=== PATIENT | male | born 1940 | race Caucasian/White ===

== ENCOUNTER 2019-10-10 10:08 | Emergency (ER) | payer MEDICARE, SELFPAY ==
--- NOTE | ~2019-10-10 | XR_ITS ---
EXAMINATION: XR chest 2V EXAM DATE: 10/10/2019 11:23 INDICATION: Cough. Generalized rib pain. TECHNIQUE: Frontal and lateral projections of the chest obtained and reviewed. Comparison is made to prior examination from 07/21/2018. FINDINGS: The lungs are clear. There are no pleural effusions. The cardiomediastinal silhouette is within normal limits. There is no pneumothorax suspected. The bones and soft tissues are unremarkab le. There is no significant interval change. IMPRESSION: No acute cardiopulmonary findings. Reviewed, dictated and finalized at location B. [employer] TEACHER
[2019-10-10 10:35] VITALS: BP 133/63; PULSE 104; RESP 20; TEMP 37.6; O2SAT 98
--- NOTE | 2019-10-10 11:59 | ED.URI ---
HPI - URI/Sore Throat General Chief Complaint: Upper Respiratory Infection Stated Complaint: congestion Time Seen by Provider: 10/10/19 11:59 Source: patient and RN notes reviewed Mode of arrival: ambulatory Limitations: no limitations History of Present Illness HPI Narrative: 78-year-old male who presents to [facility] with complaints of cough, congestion and rib pain from frequent cough since yesterday. Patient states that he has been taking Coricidin HBP for his sinus drainage which is frequent and clear, denies any ear pain or any sore throat. Patient states history of sinus problems and history of sinus infections uses nasal saline and Nasacort nasal spray daily.. He denies any shortness of breath with rest or activity,SAO2 98% on room air MD elicited complaint: cough, rhinorrhea and nasal congestion Pertinent past history: sinusitis Onset (ago): day(s) (2) Consistency: constant Severity: similar to previous episodes Description of mucous: clear Able to tolerate fluids by mouth: Yes Exacerbating factors: deep breaths and other (sinus drainage) Relieving factors: nothing Associated symptoms: rhinorrhea, nasal congestion, cough and other (bilateral anterior rib pain) Treatments prior to arrival: other (Coricidin HBP, nasal saline, Nasacort spray) Related Data Home Medications Medication Instructions Recorded Confirmed lansoprazole [Prevacid 24Hr] 15 mg PO DAILY 10/10/19 10/10/19 Allergies Allergy/AdvReac Type Severity Reaction Status Date / Time Penicillins Allergy Unknown Rash Verified 10/10/19 11:40 Review of Systems Review of Systems: All systems reviewed & are unremarkable except as noted in HPI and below Constitutional: Constitutional: Reports as per HPI, Reports no additional constitutional complaints and Reports fever(s) (low grade temperature) Eyes: Eyes: Reports as per HPI and Reports no additional eye complaints ENT: Reports system reviewed and no additional complaints, except as documented, Reports as per HPI and Reports nasal congestion Comments: clear nasal drainage Cardiovascular: Cardiovascular: Reports as per HPI and Reports no additional cardiovascular complaints Comments: rib pain due to frequent cough Respiratory: Respiratory: Reports as per HPI, Reports no additional respiratory complaints and Reports cough Gastrointestinal: Gastrointestinal: Reports as per HPI and Reports no additional gastrointestinal complaints Genitourinary: Genitourinary: Reports no additional male genitourinary complaints and Reports as per HPI Musculoskeletal: Musculoskeletal: Reports no additional musculoskeletal complaints and Reports as per HPI Integumentary/Breasts: Skin/Breast: Reports system reviewed and no additional complaints, except as docu and Reports as per HPI Neurologic: Reports system reviewed and no additional complaints, except as documented and Reports as per HPI Psychiatric: Psychiatric: Reports no additional psychiatric complaints and Reports as per HPI Hematologic/Lymphatic: Hematologic/Lymphatic: Reports no additional hematologic/lymphatic complaints and Reports as per HPI Allergic/Immunologic: Allergic/Immunologic: Reports no additional allergic/immunologic complaints and Reports as per HPI FORMERLY [facility] Past Medical History Medical History (Updated 10/12/19 @ 16:58 by Yuliana Mckeon NP) Arthritis Bronchitis GERD (gastroesophageal reflux disease) Hyperlipidemia Sinus infection Surgical History Surgical History (Updated 10/12/19 @ 16:59 by Yuliana Mckeon NP) History of bowel resection Family History Family History (Updated 10/12/19 @ 17:01 by Yuliana Mckeon NP) Other Diabetes mellitus Hypertension Social History Social History (Updated 10/12/19 @ 17:02 by Yuliana Mckeon NP) Smoking status: Former smoker Smoking end date: 08/15/1965 Alcohol intake: current Living arrangements: with family Occupation/Education: retired Gender identity (if verbalized by t
== END 2019-10-10 12:15 | disposition home or self-care (01) ==
PROVIDERS: Emergency Provider Registered Nurse
DX: J00 Acute nasopharyngitis [common cold] (principal); J01.90 Acute sinusitis, unspecified; Z87.891 Personal history of nicotine dependence; M19.90 Unspecified osteoarthritis, unspecified site; K21.9 Gastro-esophageal reflux disease without esophagitis; E78.5 Hyperlipidemia, unspecified
CPT/HCPCS: 71046; 99213; G0463

== ENCOUNTER 2019-11-26 10:27 | Emergency (ER) | payer MEDICARE, SELFPAY ==
--- NOTE | ~2019-11-26 | XR_ITS ---
EXAMINATION: XR chest 2V DATE: 11/26/2019 10:56 INDICATION: Anterior right chest pain. TECHNIQUE: Frontal and lateral views of the chest were obtained. COMPARISON: Chest 2 views 10/10/2019, CT abdomen and pelvis 12/06/2016 FINDINGS: There is mild atelectasis at left lung base. No pleural effusion or pneumothorax. The heart size is normal. IMPRESSION: 1. Mild atelectasis at left lung base. Reviewed, dictated and finalized at location A.
[2019-11-26 10:40] VITALS: BP 149/75; PULSE 100; RESP 20; TEMP 36.7; O2SAT 100
--- NOTE | 2019-11-26 11:36 | ED.GENADULT ---
HPI - General Adult General Chief complaint: Chest Pain Stated complaint: pain in chest from coughing Time Seen by Provider: 11/26/19 11:36 Source: patient and RN notes reviewed Mode of arrival: ambulatory Limitations: no limitations History of Present Illness HPI narrative: 78-year-old male who presents to [facility] care with complaints of discomfort to the left lower sternum following hard cough on Tuesday. Patient states that he continues to have intermittent sharp pain with deep breathing, cough, and if sneezing. Patient denies any shortness of breath, denies any radiation of pain, no fevers,chills, or sweats, or any palpitations. Patient denies any history of blood clots, no recent travel, was treated in September for cough, congestion and sinus infection with antibiotics and steroids. Patient has even and non labored respirations with no tachypnea or accessory muscle use, SAO2 100% on room air. Onset (ago): day(s) (3) Location: chest Radiation: non-radiation Severity: mild Pain Consistency: intermittent Exacerbating factors: other (Cough, taking deep breaths,) Associated symptoms: denies other symptoms Treatments prior to arrival: other (tylenol) Related Data Home Medications Medication Instructions Recorded Confirmed esomeprazole magnesium [Nexium] 20 mg PO DAILY 11/26/19 11/26/19 Allergies Allergy/AdvReac Type Severity Reaction Status Date / Time Penicillins Allergy Unknown Rash Verified 11/26/19 10:32 Review of Systems Review of Systems: Narrative: CONSTITUTIONAL: Denies fever, chills, or sweats. EYES: Denies visual changes, redness, or discharge. ENT: Denies rhinorrhea, congestion, sore throat, or otalgia. CARDIOVASCULAR: Left lower sternal chest pain, no palpitations, or edema. RESPIRATORY: Intermittent cough denies dyspnea. GASTROINTESTINAL: Denies abdominal pain, nausea, vomiting, or diarrhea. GENITOURINARY: Denies dysuria or hematuria. SKIN: Denies rash or itching. MUSCULOSKELETAL: Denies back pain, joint pain, or myalgia. NEUROLOGIC: Denies headache, numbness, or weakness. PSYCHIATRIC: Denies anxiety or depression. All systems reviewed & are unremarkable except as noted in HPI and below PMFSH Past Medical History Medical History Arthritis Bronchitis GERD (gastroesophageal reflux disease) Hyperlipidemia Sinus infection Surgical History Surgical History History of bowel resection Family History Family History Mother No problems noted. Father No problems noted. Other Diabetes mellitus Hypertension Social History Social History (Updated 11/05/19 @ 11:36 [address]ana [facility]) Smoking status: Former smoker Smoking end date: 08/15/1965 Alcohol intake: never Substance use: never Gender identity (if verbalized by the patient): Male Comments At time of signature, agree with nursing past medical, surgical, social history. There is no relevant family history pertinent to the presenting complaint Exam Narrative: Exam Narrative: GENERAL: Well-appearing, well-nourished, and in no acute distress. HEAD: Normocephalic, atraumatic. EYES: PERRLA and EOMI. ENT: Nares clear, no rhinorrhea or epistaxis. Mucous membranes moist. TM's normal with good light reflex, throat pink with no lesions or exudates, no tonsil enlargement. NECK: Supple.no lymphadenopathy CHEST: Clear to auscultation. No respiratory distress. Occasional dry or loose cough, SaO2 100% on room air.pain to left sternal area with cough, sneeze or deep breaths, denies any dyspnea, SAO2 100% on room air. HEART: Regular rate and rhythm. No murmur heard. Normal peripheral pulses. ABDOMEN: Soft, nontender, nondistended, normal active bowel sounds. EXTREMITIES: Normal range of motion. No edema. SKIN: Warm, dry, no rash. NEURO: No focal defic
== END 2019-11-26 12:05 | disposition home or self-care (01) ==
PROVIDERS: Emergency Provider Registered Nurse
DX: R07.89 Other chest pain (principal); Z87.891 Personal history of nicotine dependence; M19.90 Unspecified osteoarthritis, unspecified site; K21.9 Gastro-esophageal reflux disease without esophagitis; E78.5 Hyperlipidemia, unspecified
CPT/HCPCS: 71046; 99213; G0463

== ENCOUNTER 2020-11-13 17:14 | Emergency (ER) | payer MEDICARE, SELFPAY ==
--- NOTE | ~2020-11-13 | XR_ITS ---
EXAMINATION: XR chest 2V DATE: 11/13/2020 18:15 INDICATION: Dizziness. Shortness of breath. TECHNIQUE: Frontal and lateral views of the chest were obtained on 3 radiographs. COMPARISON: Chest 2 views 11/26/2019 FINDINGS: There is mild atelectasis in the lower lung zones. No pleural effusion or pneumothorax. The heart size is normal. IMPRESSION: 1. Mild atelectasis in the lower lung zones. Reviewed, dictated and finalized at location A.
--- NOTE | ~2020-11-13 | CT_ITS ---
EXAMINATION: CT brain wo con DATE: 11/13/2020 18:10 INDICATION: Dizziness. Headaches. TECHNIQUE: Computed tomography (CT) of the head was performed without intravenous contrast. The mA wa s adjusted according to patient size. Iterative reconstruction technique was employed. The dose-lengt h product was 605.33 mGy-cm. COMPARISON: None FINDINGS: There are scattered areas of low attenuation in the cerebral white matter. There is no intr acranial hemorrhage, acute infarction, or abnormal intracranial mass lesion. The ventricles are star l in size. There are likely changes of ocular lens replacement surgeries. The paranasal sinuses are c lear. There is a trace left mastoid effusion. IMPRESSION: 1. Mild nonspecific cerebral white matter disease, which likely represents chronic small vessel ische terrie disease. Reviewed, dictated and finalized at location A. IMPRESSION: 1. Mild nonspecific cerebral white matter disease, which likely represents working foreman courtney small vessel ischemic disease.
[2020-11-13 17:49] VITALS: BP 182/82; PULSE 97; RESP 97; TEMP 36.8; O2SAT 97
--- NOTE | 2020-11-13 17:49 | ECG_ITS ---
Measurements Intervals [place] Rate: 91 P: 34 AL: 135 QRS: 67 QRSD: 93 T: 37 QT: 364 QTc: 449 Interpretive Statements SINUS RHYTHM BORDERLINE ST ABNORMALITY- ANTEROLATERAL LEADS BORDERLINE ECG Electronically Signed On 11-14-2020 9:43:24 CDT by Amos Rodriguez D.O.
--- NOTE | 2020-11-13 17:50 | ED.ABDPAIN ---
HPI - Abdominal Pain General Chief Complaint: Abdominal Pain Stated Complaint: lightheaded Time Seen by Provider: 11/13/20 17:38 Source: patient Mode of arrival: ambulatory Limitations: no limitations History of Present Illness HPI narrative: This is a 79-year-old male that presents to the emergency department for lightheadedness x4 days. Reports he had an episode of lightheadedness on Tuesday in which he had to lie down to feel better. Reports since he has felt mildly lightheaded and also had a lot of nausea. He has been taking Nexium with little relief. Denies fever, chest pain, shortness of breath, vomiting, diarrhea, hematochezia or melena. Related Data Home Medications Medication Instructions Recorded Confirmed esomeprazole magnesium [Nexium] 20 mg PO DAILY 11/26/19 11/26/19 Allergies Allergy/AdvReac Type Severity Reaction Status Date / Time Penicillins Allergy Unknown Rash Verified 11/13/20 18:18 Review of Systems Review of Systems: Narrative: CONSTITUTIONAL: Denies fever EYES: Denies visual changes CARDIOVASCULAR: Denies chest pain, or edema. RESPIRATORY: Denies dyspnea. GASTROINTESTINAL: Reports nausea. Denies abdominal pain, vomiting, or diarrhea. GENITOURINARY: Denies dysuria NEUROLOGIC: Denies numbness, or weakness. All systems reviewed & are unremarkable except as noted in HPI and below PMFSH Past Medical History Medical History (Updated 11/13/20 @ 20:37 by Deanna Poon PA-C) Arthritis Bronchitis GERD (gastroesophageal reflux disease) Hyperlipidemia Sinus infection Surgical History Surgical History History of bowel resection Family History Family History Mother No problems noted. Father No problems noted. Other Diabetes mellitus Hypertension Social History Social History (Updated 11/05/19 @ 11:36 by Martina Arana CMA) Smoking status: Former smoker Smoking end date: 08/15/1965 Alcohol intake: never Substance use: never Gender identity (if verbalized by the patient): Male Exam Narrative: Exam Narrative: GENERAL: Well-appearing, well-nourished, and in no acute distress. HEAD: Normocephalic, atraumatic. EYES: PERRLA and EOMI. ENT: Nares clear, no rhinorrhea or epistaxis. Mucous membranes moist. Oropharynx without tonsillar hypertrophy exudate or other lesions. Bilateral TMs pearly [place] non-bulging NECK: Supple. No adenopathy or masses. No carotid bruits or JVD CHEST: Clear to auscultation. No respiratory distress. No wheezes rales or rhonchi HEART: Regular rate and rhythm. No murmur heard. Normal peripheral pulses. ABDOMEN: Soft, nontender, nondistended, normal active bowel sounds. EXTREMITIES: Normal range of motion. No edema. SKIN: Warm, dry, no rash. NEURO: No focal deficits. Alert and oriented x3. Cranial nerves II through XII grossly intact. Normal finger-nose. Normal [id number] PSYCH: Normal mood and affect Course Vital Signs Vital signs: Vital Signs Temperature 98.2 F 11/13/20 17:49 Pulse Rate 97 11/13/20 17:49 Respiratory Rate 97 H 11/13/20 17:49 Blood Pressure 182/82 H 11/13/20 17:49 Pulse Oximetry 97 11/13/20 17:49 Temperature 98.2 F 11/13/20 17:49 Pulse Rate 83 11/13/20 18:58 Respiratory Rate 18 11/13/20 18:58 Blood Pressure 156/78 H 11/13/20 18:58 Pulse Oximetry 100 11/13/20 18:58 MDM - Abdominal Pain MDM Narrative Medical decision making narrative: Patient presents the emergency department for intermittent lightheadedness x4 days. He is afebrile and nontoxic-appearing. Blood pressure elevated to 180s on arrival, this down trended on its own. Most recent blood pressure 156/78. CBC without concerning findings. Metabolic panel shows may be mild dehydration, patient given IV fluids and Zofran in the ED with improvement. UA without evidence of infection. EKG is
[2020-11-13 18:30] LABS: Basophils Absolute Auto 0.1 K/mm3 (0.0-0.1); Basophils Percent Auto 1.1 % (0.2-1.2); Eosinophils Absolute Auto 0.2 K/mm3 (0-0.3); Eosinophils Percent Auto 3.2 % (0-4.4); Hematocrit 44.1 % (42.0-52.0); Immature Granulocyte Absolute 0.02 K/mm3 (0.00-0.031); Immature Granulocyte Percent A 0.3 % (0-0.5); Lymphocytes Absolute Auto 1.47 K/mm3 (0.9-3.2); Lymphocytes Percent Auto 20.6 % (18.3-44.2); Mean Corpuscular Hemoglobin 31.3 pg (26-34); Mean Corpuscular Volume 92.1 fl (80-100); Mean Platelet Volume 9.7 fl (7.4-10.4); Monocytes Absolute Auto 0.7 K/mm3 (0.1-0.6); Monocytes Percent Auto 9.9 % (2.6-8.5); Neutrophils Absolute Auto 4.6 K/mm3 (1.3-6.7); Neutrophils Percent Auto 64.9 % (45.5-73.1); Platelet Count Result 225 k/mm3 (150-375); Red Blood Count 4.79 M/mm3 (4.6-6.20); White Blood Count 7.2 K/mm3 (4.5-10.0)
[2020-11-13 18:39] LABS: INR 0.9; Prothrombin Time 12.7 Seconds (11.1-14.7)
[2020-11-13 18:40] LABS: Partial Thromboplastin Time 27.5 SECONDS (22.3-36.8)
[2020-11-13 18:43] LABS: Alanine Aminotransferase 16 U/L (4-50); Albumin Level 4.4 g/dL (3.5-5.1); Alkaline Phosphatase 103 U/L (38-126); Anion Gap 9 mmol/L (8-16); Aspartate Amino Transferase 22 U/L (17-59); Bilirubin,Total 0.5 mg/dL (0.2-1.3); Blood Urea Nitrogen 14 mg/dL (9-20); Carbon Dioxide 26 mmol/L (22-30); Chloride 104 mmol/L (98-107); Estimated Glomerular Filt Rate 54; Glucose 110 mg/dL (75-110); Lipase 138 U/L (23-300); Sodium 139 mmol/L (137-145)
[2020-11-13] MEDS: SODIUM CHLORIDE 0.9% IV 1,000 ML 999 ML IV CONT (18:53)
[2020-11-13] MEDS: ONDANSETRON INJ 4 MG/2 ML VIAL IV PUSH (18:53)
[2020-11-13 18:58] VITALS: BP 156/78; PULSE 83; RESP 18; O2SAT 100
[2020-11-13 19:00] VITALS: BP 159/82; PULSE 88; RESP 17; O2SAT 99
[2020-11-13 20:00] VITALS: BP 162/69; PULSE 83; RESP 17; O2SAT 100
[2020-11-13 20:01] LABS: Troponin I < 0.012 ng/mL (0.000-0.034)
[2020-11-13 20:26] LABS: Add Urine Microscopic? NO; Appearance Urine Clear (Clear); Bilirubin Urine Negative (Negative); Blood Urine Negative (Negative); Color Urine Straw (Yellow); Glucose Urine UA Negative (Negative); Ketones Urine Negative (Negative); Leukocyte Esterase Ur Negative LEU/UL (Negative); Nitrate Urine Negative (Negative); Protein Urine Negative (Negative); Specific Grav Ur 1.009 (1.001-1.035); Urobilinogen Urine Negative mg/dL (<2.0)
[2020-11-13 21:00] VITALS: BP 141/71; PULSE 84; RESP 17; O2SAT 99
[2020-11-13 21:35] VITALS: BP 156/71; PULSE 91; RESP 16; O2SAT 99
== END 2020-11-13 21:35 | disposition home or self-care (01) ==
PROVIDERS: Emergency Medicine; Physician Assistant; Emergency Provider Emergency Medicine
DX: R42 Dizziness and giddiness (principal); M19.90 Unspecified osteoarthritis, unspecified site; K21.9 Gastro-esophageal reflux disease without esophagitis; E78.5 Hyperlipidemia, unspecified; Z87.891 Personal history of nicotine dependence; R94.31 Abnormal electrocardiogram [ECG] [EKG]; R90.82 White matter disease, unspecified; R91.8 Other nonspecific abnormal finding of lung field
CPT/HCPCS: 36415; 70450; 71046; 80053; 81003; 83690; 84484; 85025; 85610; 85730; 93005; 96361; 96374; 99284; J2405; J7030

== ENCOUNTER 2020-12-15 11:13 | Emergency (ER) | payer MEDICARE, SELFPAY ==
--- NOTE | ~2020-12-15 | XR_ITS ---
EXAMINATION: XR chest 2V DATE: 12/15/2020 12:09 INDICATION: Chest pain TECHNIQUE: PA and lateral views of the chest are obtained. COMPARISON: 11/13/2020 FINDINGS: The lungs are free of acute opacities. There is no pleural effusion or pneumothorax. The ca rdiomediastinal silhouette is normal. There is mild thoracic spondylosis. IMPRESSION: 1. No acute cardiopulmonary abnormality. Reviewed, dictated and finalized at location A.
--- NOTE | ~2020-12-15 | CT_ITS ---
EXAMINATION: CTA chest PE protocol EXAM DATE: 12/15/2020 13:14 INDICATION: Left chest pain, elevated d dimer TECHNIQUE: Spiral CTA of the chest (pulmonary arteries) was performed with 100 cc Omnipaque 350 intr avenous contrast injection. Images were acquired during the pulmonary arterial phase. Coronal maxi mum intensity projection 3D-reconstructions were created by the technologist on dedicated workstation . Axial, coronal and sagittal reformatted images were reviewed. The dose-length product (DLP) for t his examination was 406.49 mGy-cm. The exposure was tailored according to patient size (auto mA exp osure control), and iterative reconstruction (ASIR) was used as additional dose reduction technique. There is no prior study for comparison. FINDINGS: There are no pulmonary emboli in the 1st through 3rd order (central and interlobar) pulmon sophie arteries. Some loss of attenuation in the segmental pulmonary arteries due to respiratory motion , but no intraluminal filling defects suspected. No thoracic aortic dissection. The lungs are kim r. There is small pericardial effusion. No pleural effusions. Mild bronchiectasis. Tracheobronchia l tree is patent. There is no mediastinal, hilar or axillary lymphadenopathy. There is no pneumot horax. Heart normal in size. There is mild to moderate coronary arterial calcification, arterial sclerosis. Scattered transverse colonic diverticulosis. The bones are unremarkable. IMPRESSION: 1. No pulmonary emboli or acute findings. 2. Mild bronchiectasis. Reviewed, dictated and finalized at location B.
[2020-12-15 11:18] VITALS: BP 190/90; PULSE 97; RESP 18; TEMP 36.7; O2SAT 99
--- NOTE | 2020-12-15 11:35 | ECG_ITS ---
Measurements Intervals [place] Rate: 99 P: 47 OR: 135 QRS: 73 QRSD: 88 T: 58 QT: 334 QTc: 430 Interpretive Statements SINUS RHYTHM DELAYED PRECORDIAL R/S TRANSITION BORDERLINE ST ABNORMALITY- ANTEROLATERAL LEADS BORDERLINE ECG Electronically Signed On 12-15-2020 14:31:22 CDT by Amos Rodriguez D.O.
[2020-12-15 11:44] LABS: Basophils Absolute Auto 0.1 K/mm3 (0.0-0.1); Basophils Percent Auto 1.3 % (0.2-1.2); Eosinophils Absolute Auto 0.2 K/mm3 (0-0.3); Eosinophils Percent Auto 3.1 % (0-4.4); Hematocrit 45.9 % (42.0-52.0); Hemoglobin 15.3 g/dL (14.0-18.0); Immature Granulocyte Absolute 0.02 K/mm3 (0.00-0.031); Immature Granulocyte Percent A 0.4 % (0-0.5); Lymphocytes Absolute Auto 1.06 K/mm3 (0.9-3.2); Lymphocytes Percent Auto 19.1 % (18.3-44.2); Mean Corpuscular HGB Conc 33.3 g/dl (32-36); Mean Corpuscular Hemoglobin 31.2 pg (26-34); Mean Corpuscular Volume 93.5 fl (80-100); Mean Platelet Volume 9.7 fl (7.4-10.4); Monocytes Absolute Auto 0.6 K/mm3 (0.1-0.6); Neutrophils Absolute Auto 3.6 K/mm3 (1.3-6.7); Neutrophils Percent Auto 65.1 % (45.5-73.1); Platelet Count Result 183 k/mm3 (150-375); Red Blood Count 4.91 M/mm3 (4.6-6.20); Red Cell Distribution Width 11.9 % (11.5-14.5); White Blood Count 5.6 K/mm3 (4.5-10.0)
[2020-12-15 12:00] LABS: Prothrombin Time 13.3 Seconds (11.1-14.7)
[2020-12-15 12:01] LABS: Anion Gap 7 mmol/L (8-16); Blood Urea Nitrogen 12 mg/dL (9-20); Calcium 9.6 mg/dL (8.4-10.2); Carbon Dioxide 29 mmol/L (22-30); Chloride 104 mmol/L (98-107); Estimated CRCL calculation 45 ml/min; Estimated Glomerular Filt Rate 59; Glucose 130 mg/dL (75-110); Partial Thromboplastin Time 22.6 SECONDS (22.3-36.8); Sodium 140 mmol/L (137-145)
[2020-12-15 12:12] LABS: Troponin I < 0.012 ng/mL (0.000-0.034)
[2020-12-15 12:14] LABS: Alanine Aminotransferase 17 U/L (4-50); Albumin Level 4.2 g/dL (3.5-5.1); Alkaline Phosphatase 91 U/L (38-126); Aspartate Amino Transferase 29 U/L (17-59); Bilirubin,Total 0.5 mg/dL (0.2-1.3); D Dimer 1.74 ug/mL (<0.48); Lipase 121 U/L (23-300)
--- NOTE | 2020-12-15 12:19 | ED.CHESTPAIN ---
HPI - Chest Pain General Chief Complaint: Chest Pain Stated Complaint: CHEST PAIN X5D Time Seen by Provider: 12/15/20 11:33 Source: patient, RN notes reviewed and old records reviewed Mode of arrival: ambulatory Limitations: no limitations History of Present Illness HPI narrative: This is a 80 year old male with history of GERD who presents for evaluation of left chest pain. He reports he has been having intermittent left sternal and left lower chest pain for 5 days. He thinks his pain usually occurs in the morning. He states it is intermittent and nonradiating. His pain may last from minutes to hours. He thinks his pain is superficial like a muscle. He denies associated nausea, vomiting, cough, sob, diaphoresis. He took ibuprofen before coming in for his pain and he states his pain has resolved. Related Data Home Medications Medication Instructions Recorded Confirmed esomeprazole magnesium [Nexium] 20 mg PO DAILY 11/26/19 12/09/20 Allergies Allergy/AdvReac Type Severity Reaction Status Date / Time Penicillins Allergy Unknown Rash Verified 12/15/20 11:24 Review of Systems Review of Systems: All systems reviewed & are unremarkable except as noted in HPI and below PMFSH Past Medical History Medical History Arthritis Bronchitis GERD (gastroesophageal reflux disease) Hyperlipidemia Sinus infection Surgical History Surgical History History of bowel resection Family History Family History Mother No problems noted. Father No problems noted. Other Diabetes mellitus Hypertension Social History Social History Smoking status: Never smoker Smoking end date: 08/15/1965 Alcohol intake: never Substance use: never Gender identity (if verbalized by the patient): Male Exam Const: General: no acute distress and alert Orientation/consciousness: patient oriented x3 Eyes: EOM: EOMs intact bilaterally Resp: Effort & Inspection: normal respiratory effort and no retractions Auscultation: clear to auscultation bilaterally Cardio: Rate: regular rate Rhythm: regular rhythm Heart sounds: no murmurs GI: GI Palp: Yes Soft to palpation, No Tenderness to palpation present (GI) and No Guarding due to palpation present (GI) Auscultation: normal bowel sounds Neuro: General: patient oriented x3, moves all extremities and CN's II-XI intact bilaterally Extrem: General: normal to inspection Psych: Mental Status: mental status grossly normal Affect: normal affect Course Reevaluation(s) Reevaluation #1: Patient is laying in bed comfortably reading a book. He has not complained about pain in ER. EValuation has been unremarkable her. He will follow up with PCP Date: 12/15/20 Time: 15:27 Vital Signs Vital signs: Vital Signs Temperature 98.0 F 12/15/20 11:18 Pulse Rate 97 12/15/20 11:18 Respiratory Rate 18 12/15/20 11:18 Blood Pressure 190/90 H 12/15/20 11:18 Pulse Oximetry 99 12/15/20 11:18 Temperature 98.0 F 12/15/20 11:18 Pulse Rate 78 12/15/20 15:37 Respiratory Rate 18 12/15/20 15:37 Blood Pressure 145/67 H 12/15/20 15:37 Pulse Oximetry 99 12/15/20 15:37 MDM - Chest Pain Medical Records Data Attestation: I reviewed the patient's medical records. Lab Data Attestation: I reviewed the patient's lab results. Result diagrams: 12/15/20 11:38 12/15/20 11:38 Labs: Lab Results 12/15/20 12/15/20 12/15/20 Range/Units 11:38 11:38 11:38 WBC 5.6 (4.5-10.0) K/mm3 RBC 4.91 (4.6-6.20) M/mm3 Hgb 15.3 (14.0-18.0) g/dL Hct 45.9 (42.0-52.0) % MCV 93.5 (80-100) fl MCH 31.2 (26-34) pg MCHC 33.3 (32-36) g/dl RDW 11.9 (11.5-14.5) % Pl
[2020-12-15] MEDS: ASPIRIN 81 MG CHEWABLE TABLET 324 MG PO (12:25)
[2020-12-15 13:28] VITALS: BP 150/75; PULSE 85; RESP 18; O2SAT 99
[2020-12-15 14:34] VITALS: BP 155/86; PULSE 91; RESP 18; O2SAT 99
[2020-12-15 15:06] LABS: Troponin I < 0.012 ng/mL (0.000-0.034)
[2020-12-15 15:37] VITALS: BP 145/67; PULSE 78; RESP 18; O2SAT 99
== END 2020-12-15 15:39 | disposition home or self-care (01) ==
PROVIDERS: Emergency Provider General Practice; PCP Family Medicine
DX: R07.89 Other chest pain (principal); K21.9 Gastro-esophageal reflux disease without esophagitis; M19.90 Unspecified osteoarthritis, unspecified site; E78.5 Hyperlipidemia, unspecified; Z90.49 Acquired absence of other specified parts of digestive tract; R94.31 Abnormal electrocardiogram [ECG] [EKG]; J47.9 Bronchiectasis, uncomplicated
CPT/HCPCS: 36415; 71046; 71275; 80048; 80076; 83690; 84484; 85025; 85380; 85610; 85730; 93005; 99284; A9270; Q9967

== ENCOUNTER 2021-02-09 14:27 | Emergency (ER) | payer MEDICARE, SELFPAY ==
[2021-02-09 14:34] VITALS: BP 134/74; PULSE 102; RESP 16; TEMP 36.4; O2SAT 100
--- NOTE | 2021-02-09 15:13 | ED.URI ---
HPI - URI/Sore Throat General Chief Complaint: Upper Respiratory Infection Stated Complaint: Possible Sinus Infection Time Seen by Provider: 02/09/21 15:14 Source: patient, RN notes reviewed and old records reviewed Mode of arrival: ambulatory Limitations: no limitations History of Present Illness HPI Narrative: 80 year old male presents to [facility] care with complaints of his 'sinuses going crazy' since Tuesday. Patient states that he has sinus pressure and frontal headache with sinus drainage and cough. He states that if he bends over his sinuses run like crazy. He reports that he has taken OTC antihistamine, Sudafed. and Ibuprofen with no improvement in his symptoms. Patient denies any known fevers, chills or sweats, denies any feelings of dyspnea at rest or with activity. Patient states that he has long history of frequent sinus infections. MD elicited complaint: cough and nasal congestion Pertinent past history: sinusitis Onset (ago): day(s) (4) Consistency: progressively worsening Severity: similar to previous episodes Pain scale (0-10): 5 Description of mucous: clear Able to tolerate fluids by mouth: Yes Exacerbating factors: changing head position and leaning forward Relieving factors: nothing Associated symptoms: voice changes, headache, rhinorrhea, nasal congestion and cough Treatments prior to arrival: ibuprofen, cold medicine and other (sudafed and antihistamine) Related Data Home Medications Medication Instructions Recorded Confirmed ranitidine HCl [Zantac] mg 02/09/21 Allergies Allergy/AdvReac Type Severity Reaction Status Date / Time Penicillins Allergy Unknown Rash Verified 12/15/20 11:24 Review of Systems Review of Systems: Narrative: CONSTITUTIONAL: Denies fever, chills, or sweats. EYES: Denies visual changes, redness, or discharge. ENT: Positive rhinorrhea, congestion, post nasal drainage with sinus pressure,nosore throat, or otalgia. CARDIOVASCULAR: Denies chest pain, palpitations, or edema. RESPIRATORY: Positive cough denies dyspnea. GASTROINTESTINAL: Denies abdominal pain, nausea, vomiting, or diarrhea. GENITOURINARY: Denies dysuria or hematuria. SKIN: Denies rash or itching. MUSCULOSKELETAL: Denies back pain, joint pain, or myalgia. NEUROLOGIC: Positive frontal headache, numbness, or weakness. PSYCHIATRIC: Denies anxiety or depression. All systems reviewed & are unremarkable except as noted in HPI and below PMFSH Past Medical History Medical History Arthritis Bronchitis GERD (gastroesophageal reflux disease) Hyperlipidemia Sinus infection Surgical History Surgical History History of bowel resection Family History Family History Mother No problems noted. Father No problems noted. Other Diabetes mellitus Hypertension Social History Social History (Updated 02/13/21 @ 13:05 by Yuliana Mckeon NP) Smoking status: Former smoker Smoking end date: 08/15/1965 Alcohol intake: never Substance use: never Gender identity (if verbalized by the patient): Male Exam Narrative: Exam Narrative: GENERAL: Well-appearing, well-nourished, and in no acute distress. HEAD: Normocephalic, atraumatic. EYES: PERRLA and EOMI. ENT: Nares swollen and red with clear post nasal drainage and rhinorrhea no epistaxis. Mucous membranes moist. TM's normal with good light reflex no drainage noted, throat slightly red with post nasal drainage noted, no tonsil enlargement or any exudate or lesions. frontal headache with pressure to face. NECK: Supple.no lymphadenopathy CHEST: Clear to auscultation. No respiratory distress.SAO2 100% on room air, respiration unlabored HEART: Regular rate and rhythm. No murmur heard. Normal peripheral pulses. ABDOMEN: Soft, nontender, nondistended, normal active bowel sounds.
== END 2021-02-09 15:34 | disposition home or self-care (01) ==
PROVIDERS: Emergency Provider Registered Nurse; PCP Family Medicine
DX: J32.9 Chronic sinusitis, unspecified (principal); Z87.891 Personal history of nicotine dependence; M19.90 Unspecified osteoarthritis, unspecified site; K21.9 Gastro-esophageal reflux disease without esophagitis; E78.5 Hyperlipidemia, unspecified
CPT/HCPCS: 99213; G0463

== ENCOUNTER 2022-07-19 10:08 | Emergency (ER) | payer MEDICARE, SELFPAY ==
[2022-07-19 10:12] VITALS: BP 164/71; PULSE 106; RESP 20; TEMP 36.7; O2SAT 98
--- NOTE | 2022-07-19 10:27 | ED.URI ---
HPI - URI/Sore Throat General Chief Complaint: Upper Respiratory Infection Stated Complaint: sinus/cold Time Seen by Provider: 07/19/22 10:27 History of Present Illness HPI Narrative: Patient presents with nasal congestion sinus pressure and tenderness for the past 7-10 days. Loose nonproductive cough no shortness of breath no chest pain no high fevers. Patient states he has taken multiple medications [id number] with minimal relief in his symptoms. Related Data Allergies Allergy/AdvReac Type Severity Reaction Status Date / Time Penicillins Allergy Unknown Rash Verified 07/19/22 10:21 Review of Systems Review of Systems: CONSTITUTIONAL: Denies chills, or sweats. Reports fever and generalized body aches EYES: Denies visual changes, redness, or discharge. ENT: Denies otalgia. Reports nasal congestion runny nose and sore throat CARDIOVASCULAR: Denies chest pain, palpitations, or edema. RESPIRATORY: Denies dyspnea. Reports occasional cough GASTROINTESTINAL: Denies abdominal pain, nausea, vomiting, or diarrhea. GENITOURINARY: Denies dysuria or hematuria. SKIN: Denies rash or itching. MUSCULOSKELETAL: Denies back pain, joint pain, or myalgia. Reports generalized body aches NEUROLOGIC: Denies headache, numbness, or weakness. PSYCHIATRIC: Denies anxiety or depression. [facility] Past Medical History Medical History Abdominal bloating Arthritis Bronchitis GERD (gastroesophageal reflux disease) Hyperlipidemia Sinus infection Surgical History Surgical History History of bowel resection Family History Family History Mother No problems noted. Father No problems noted. Other Diabetes mellitus Hypertension Social History Social History (Updated 06/25/22 @ 08:49 by Rosa M Olivia CMA) Smoking status: Former smoker (smoked 1ppd for 10 years but quit 55 years ago) Second hand tobacco smoke exposure: No Smoking end date: 08/15/1965 Alcohol intake: never Substance use: never Substance use type: does not use Lack of Transportation: No Lack of Food: Never True Current Housing: I Have Housing Concerned About Future Housing: No Difficulty Paying Gas/Electric Bills: No Difficulty Paying for Meds: No Currently Unemployed: YES Education: High School Diploma/GED Difficulty w/ Childcare or Family Care: No Gender identity (if verbalized by the patient): Male Spiritual care concerns: No Agree to blood products: Yes Comments At time of signature, agree with nursing past medical, surgical, social and family history. There is no relevant family history pertinent to the presenting complaint Exam Narrative: The patient is a well-developed, well-nourished in no acute distress. SKIN: Skin is warm and dry without erythema, swelling or exudate. There is good turgor. No tenting. HEAD: Atraumatic. Normocephalic. No temporal or scalp tenderness. EYES: Moist and bright. Sclera and conjunctivae normal. No discharge. PERRLA. Extraocular motions intact. Gross visual acuity intact. EARS: Pinna is normal shape and contour. Clear external auditory canals. TM pearly kc with good cone of light, no erythema or suppuration. Bilateral cerumen noted no gross hearing deficit. NOSE: pink, moist mucosa with good air movement. Clear rhinorrhea without nasal flaring. Septum midline. Mild postnasal drainage moderate erythema at the maxillary sinus and tenderness Mouth: moist mucous membranes. THROAT; mild erythema noted to posterior oropharynx with moderate postnasal drainage. Without exudate or ulceration.. Uvula midline. Normal movement of soft palate. NECK: Supple and nontender with full range of motion without discomfort. No meningeal signs. LUNGS: Equal and bilateral breath sounds without wheezes, rales or rhonchi
== END 2022-07-19 10:37 | disposition home or self-care (01) ==
PROVIDERS: Emergency Provider Nurse Practitioner Family; PCP Family Medicine
DX: J06.9 Acute upper respiratory infection, unspecified (principal); J32.9 Chronic sinusitis, unspecified; Z87.891 Personal history of nicotine dependence; M19.90 Unspecified osteoarthritis, unspecified site; K21.9 Gastro-esophageal reflux disease without esophagitis; E78.5 Hyperlipidemia, unspecified
CPT/HCPCS: 99213; G0463

== ENCOUNTER 2023-03-24 11:16 | Emergency (ER) | payer MEDICARE, SELFPAY ==
[2023-03-24 11:22] VITALS: BP 149/76; PULSE 101; RESP 18; TEMP 36.3; O2SAT 98
--- NOTE | 2023-03-24 11:23 | ED.GENADULT ---
HPI - General Adult General Chief complaint: Upper Respiratory Infection Stated complaint: Sinus Pain Time Seen by Provider: 03/24/23 11:23 Source: patient, RN notes reviewed and old records reviewed Mode of arrival: ambulatory Limitations: no limitations History of Present Illness HPI narrative: 82-year-old male presents to the [facility] with complaints of sinus pain and pressure for a couple of weeks. Also reports ears itching Pressure for couple of weeks. Has taking Sudafed and using a nasal spray Related Data Allergies Allergy/AdvReac Type Severity Reaction Status Date / Time Penicillins Allergy Unknown Rash Verified 12/21/22 08:19 Review of Systems Review of Systems: All systems reviewed & are unremarkable except as noted in HPI and below Constitutional: Constitutional: Reports no additional constitutional complaints Eyes: Eyes: Reports no additional eye complaints ENT: Reports as per HPI, Reports nasal congestion, Reports sinus pain and Reports sinus pressure Cardiovascular: Cardiovascular: Reports no additional cardiovascular complaints, Denies chest pain and Denies dyspnea Respiratory: Respiratory: Reports no additional respiratory complaints, Denies chest congestion, Denies cough and Denies dyspnea Gastrointestinal: Gastrointestinal: Reports no additional gastrointestinal complaints, Denies abdominal pain, Denies nausea and Denies vomiting Musculoskeletal: Musculoskeletal: Reports no additional musculoskeletal complaints Integumentary/Breasts: Skin/Breast: Reports system reviewed and no additional complaints, except as docu Neurologic: Reports system reviewed and no additional complaints, except as documented Psychiatric: Psychiatric: Reports no additional psychiatric complaints Allergic/Immunologic: Allergic/Immunologic: Reports no additional allergic/immunologic complaints PMF Past Medical History Medical History Abdominal bloating Arthritis Bronchitis Chronic renal insufficiency, stage III (moderate) GERD (gastroesophageal reflux disease) Hyperlipidemia Sinus infection Surgical History Surgical History History of bowel resection Family History Family History Mother No problems noted. Father No problems noted. Other Diabetes mellitus Hypertension Social History Social History Smoking status: Former smoker (smoked 1ppd for 10 years but quit 55 years ago) Second hand tobacco smoke exposure: No Smoking end date: 08/15/1965 Alcohol intake: never Substance use: never Substance use type: does not use Lack of Transportation: No Lack of Food: Never True Current Housing: I Have Housing Concerned About Future Housing: No Difficulty Paying Gas/Electric Bills: No Difficulty Paying for Meds: No Currently Unemployed: YES Education: High School Diploma/GED Difficulty w/ Childcare or Family Care: No Living arrangements: with family Occupation/Education: retired Gender identity (if verbalized by the patient): Male Spiritual care concerns: No Agree to blood products: Yes Comments At the time of my signature, I reviewed and agree with the nursing past medical, surgical, social, and family history. There is no relevant family history pertinent to the patient complaint. Exam Const: General: cooperative, healthy appearing, comfortable, no acute distress, well developed, alert and well nourished Nutritional Appearance: well nourished Orientation/consciousness: patient oriented x3 Limitations: no limitations HENMT: Head: normal to inspection Ears: hearing grossly normal bilaterally, external ears normal, EAC's normal and TM abnormal with fluid behind the TM bilateral; not erythematous and with no loss of landmar
== END 2023-03-24 11:37 | disposition home or self-care (01) ==
PROVIDERS: Emergency Provider Nurse Practitioner; PCP Family Medicine
DX: J32.9 Chronic sinusitis, unspecified (principal); H65.03 Acute serous otitis media, bilateral; Z87.891 Personal history of nicotine dependence; M19.90 Unspecified osteoarthritis, unspecified site; I12.9 Hypertensive chronic kidney disease with stage 1 through stage 4 chronic kidney disease, or unspecified chronic kidney disease; N18.30 Chronic kidney disease, stage 3 unspecified; E78.5 Hyperlipidemia, unspecified
CPT/HCPCS: 99213; G0463

== ENCOUNTER 2023-06-08 09:49 | Emergency (ER) | payer MEDICARE, SELFPAY ==
--- NOTE | 2023-06-08 09:53 | ED.SKABFB ---
HPI - Skin/Abscess/Foreign Bdy General Chief complaint: Skin/Abscess/Foreign Body Stated complaint: right foot wound Time Seen by Provider: 06/08/23 10:02 Source: patient and RN notes reviewed Mode of arrival: ambulatory Limitations: no limitations History of Present Illness HPI narrative: 82-year-old male presents with concern for a sore on his toe. He reports a spot between his 4th and 5th digits that occasionally nelson, otherwise does not hurt. He denies any drainage or injury. He reports he has been putting Neosporin on it. He denies redness, swelling, decreased range of motion. complaint: lesion Related Data Allergies Allergy/AdvReac Type Severity Reaction Status Date / Time Penicillins Allergy Unknown Rash Verified 06/08/23 10:01 Review of Systems Review of Systems: CONSTITUTIONAL: Denies malaise, chills, sweats, or fever. SKIN: Reports a sore on his toe MUSCULOSKELETAL: Denies muscle skeletal pain All systems reviewed & are unremarkable except as noted in HPI and below PMFSH Past Medical History Medical History Abdominal bloating Arthritis Bronchitis Chronic renal insufficiency, stage III (moderate) GERD (gastroesophageal reflux disease) Hyperlipidemia Sinus infection Surgical History Surgical History History of bowel resection Family History Family History Mother No problems noted. Father No problems noted. Other Diabetes mellitus Hypertension Social History Social History Smoking status: Former smoker (smoked 1ppd for 10 years but quit 55 years ago) Second hand tobacco smoke exposure: No Smoking end date: 08/15/1965 Alcohol intake: never Substance use: never Substance use type: does not use Lack of Transportation: No Lack of Food: Never True Current Housing: I Have Housing Concerned About Future Housing: No Difficulty Paying Gas/Electric Bills: No Difficulty Paying for Meds: No Currently Unemployed: YES Education: High School Diploma/GED Difficulty w/ Childcare or Family Care: No Living arrangements: with family Occupation/Education: retired Gender identity (if verbalized by the patient): Male Spiritual care concerns: No Agree to blood products: Yes Comments At time of signature, agree with nursing past medical, surgical, social and family history. There is no relevant family history pertinent to the presenting complaint Exam Narrative: GENERAL: Well-appearing, well-nourished, and in no acute distress. HEAD: Normocephalic, atraumatic. EYES: PERRLA, conjunctivae clear, and EOMI. ENT: Mucous membranes moist. NECK: Supple. No lymphadenopathy CHEST: Clear to auscultation. No respiratory distress. HEART: Regular rate and rhythm. SKIN: Warm, dry. Wart noted on the lateral toe between the 4th and 5th digits without surrounding erythema, edema, induration, no fluctuation or drainage NEURO: Alert and oriented x3. PSYCH: Normal mood and affect Course Course Emergency Course: Patient is aware of diagnosis, understands and agrees to treatment plan. Anticipatory guidance given. Patient agrees to follow-up as directed and is aware of reasons to seek care at the emergency department. Portions of this record may have been created with voice recognition software Level of Care: Express Care Visit Vital Signs Vital signs: Reviewed. MDM - Skin/Abscess/Foreign Bdy MDM Narrative Medical decision making narrative: Does not appear at this time to be erythema multiforme, bullous, SJS, TEN; no evidence at this time to suggest RMSF, endocarditis or Lyme disease; patient looks well, nontoxic and is tolerating oral intake; no neurologic signs or symptoms; no headache, photophobia or neck pain; afe
[2023-06-08 09:55] VITALS: BP 167/82; PULSE 105; RESP 14; TEMP 36.4; O2SAT 98
== END 2023-06-08 10:12 | disposition home or self-care (01) ==
PROVIDERS: Emergency Provider Nurse Practitioner; PCP Family Medicine
DX: B07.0 Plantar wart (principal); Z87.891 Personal history of nicotine dependence; N18.2 Chronic kidney disease, stage 2 (mild); M19.90 Unspecified osteoarthritis, unspecified site; K21.9 Gastro-esophageal reflux disease without esophagitis; E78.5 Hyperlipidemia, unspecified
CPT/HCPCS: 99213; G0463

== ENCOUNTER 2023-09-13 11:01 | Emergency (ER) | payer MEDICARE, SELFPAY ==
--- NOTE | 2023-09-13 11:07 | ED.URI ---
HPI - URI/Sore Throat General Chief Complaint: Upper Respiratory Infection Stated Complaint: Chills/Congestion/Shortness of breath Time Seen by Provider: 09/13/23 11:23 Source: patient and RN notes reviewed Mode of arrival: ambulatory Limitations: no limitations History of Present Illness HPI Narrative: 82-year-old male presents with concern for 2 week history of nasal congestion, cough, chest congestion. He reports general malaise. Denies fever and shortness of breath. MD elicited complaint: cough and sore throat Related Data Allergies Allergy/AdvReac Type Severity Reaction Status Date / Time Penicillins Allergy Unknown Rash Verified 06/27/23 08:28 Review of Systems Review of Systems: CONSTITUTIONAL: Denies malaise, chills, sweats, or fever. EYES: Denies visual changes, redness, or discharge. ENT: Reports rhinorrhea, congestion, sinus pain CARDIOVASCULAR: Denies chest pain, palpitations, or edema. RESPIRATORY: Reports cough. Denies dyspnea. GASTROINTESTINAL: Denies abdominal pain, nausea, vomiting, diarrhea SKIN: Denies rash or itching. MUSCULOSKELETAL: Denies myalgia. NEUROLOGIC: Denies headache. All systems reviewed & are unremarkable except as noted in HPI and below PMFSH Past Medical History Medical History Abdominal bloating Arthritis Bronchitis Chronic renal insufficiency, stage III (moderate) GERD (gastroesophageal reflux disease) Hyperlipidemia Sinus infection Surgical History Surgical History History of bowel resection Family History Family History Mother No problems noted. Father No problems noted. Other Diabetes mellitus Hypertension Social History Social History Smoking status: Former smoker (smoked 1ppd for 10 years but quit 55 years ago) Second hand tobacco smoke exposure: No Smoking end date: 08/15/1965 Alcohol intake: never Substance use: never Substance use type: does not use Lack of Transportation: No Lack of Food: Never True Current Housing: I Have Housing Concerned About Future Housing: No Difficulty Paying Gas/Electric Bills: No Difficulty Paying for Meds: No Currently Unemployed: YES Education: High School Diploma/GED Difficulty w/ Childcare or Family Care: No Living arrangements: with family Occupation/Education: retired Gender identity (if verbalized by the patient): Male Spiritual care concerns: No Agree to blood products: Yes Comments At time of signature, agree with nursing past medical, surgical, social and family history. There is no relevant family history pertinent to the presenting complaint Exam Narrative: GENERAL: Well-appearing, well-nourished, and in no acute distress. HEAD: Normocephalic EYES: PERRLA, conjunctivae clear ENT: Nares clear, turbinates edematous and erythematous. Mucous membranes moist. TM pearly lantigua with dull light reflex bilaterally; no tragal tenderness. Oropharynx not erythematous without lesions. Tonsils not enlarged and without exudate, no drooling, no hoarseness, no trismus, uvula midline. NECK: Supple. No lymphadenopathy CHEST: Clear to auscultation, breath sounds equal. No wheezing, rhonchi, rales, or stridor. No respiratory distress, speaks in full sentences. Cough and HEART: Regular rate and rhythm. No murmur heard. SKIN: Warm, dry, no rash. NEURO: Alert and oriented x3. PSYCH: Normal mood and affect Course Course Emergency Course: Patient is aware of diagnosis, understands and agrees to treatment plan. Anticipatory guidance given. Patient agrees to follow-up as directed and is aware of reasons to seek care at the emergency department. Portions of this record may have been created with voice recogni
[2023-09-13 11:16] VITALS: BP 155/81; PULSE 91; RESP 18; TEMP 36.2; O2SAT 100
== END 2023-09-13 11:38 | disposition home or self-care (01) ==
PROVIDERS: Emergency Provider Nurse Practitioner; PCP Family Medicine
DX: J32.9 Chronic sinusitis, unspecified (principal); J40 Bronchitis, not specified as acute or chronic; M19.90 Unspecified osteoarthritis, unspecified site; K21.9 Gastro-esophageal reflux disease without esophagitis; E78.5 Hyperlipidemia, unspecified; N18.30 Chronic kidney disease, stage 3 unspecified; Z87.891 Personal history of nicotine dependence
CPT/HCPCS: 99213; G0463

== ENCOUNTER 2023-12-02 14:45 | Emergency (ER) | payer MEDICARE, SELFPAY ==
[2023-12-02 14:51] VITALS: BP 172/84; PULSE 99; RESP 18; TEMP 36.6; O2SAT 100
--- NOTE | 2023-12-02 15:02 | ED.GENADULT ---
HPI - General Adult General Chief complaint: Skin/Abscess/Foreign Body Stated complaint: Skin Problem Time Seen by Provider: 12/02/23 15:02 Source: patient, RN notes reviewed and old records reviewed Mode of arrival: ambulatory Limitations: no limitations History of Present Illness HPI narrative: 83-year-old male to Express Care with complaint of diffuse rash to bilateral dorsal arms and bilateral ankles for 1 week. Patient endorses attempting to treat at home with cortisone 10 with mild relief. Patient denies seasonal or environmental allergies. Patient denies exposure to any new products or potential environmental irritants. Patient endorses allergy to penicillin. Patient denies cough, shortness of breath. Related Data Allergies Allergy/AdvReac Type Severity Reaction Status Date / Time Penicillins Allergy Unknown Rash Verified 06/27/23 08:28 Review of Systems Review of Systems: All systems reviewed & are unremarkable except as noted in HPI and below Constitutional: Constitutional: Reports no additional constitutional complaints Eyes: Eyes: Reports no additional eye complaints ENT: Reports system reviewed and no additional complaints, except as documented Cardiovascular: Cardiovascular: Reports no additional cardiovascular complaints, Denies chest pain and Denies dyspnea Respiratory: Respiratory: Reports no additional respiratory complaints, Denies cough and Denies dyspnea Musculoskeletal: Musculoskeletal: Reports no additional musculoskeletal complaints Integumentary/Breasts: Skin/Breast: Reports pruritus and Reports rash ( Diffuse bilateral dorsal forearms; bilateral ankles) Neurologic: Reports system reviewed and no additional complaints, except as documented Psychiatric: Psychiatric: Reports no additional psychiatric complaints PMF Past Medical History Medical History Abdominal bloating Arthritis Bronchitis Chronic renal insufficiency, stage III (moderate) GERD (gastroesophageal reflux disease) Hyperlipidemia Sinus infection Surgical History Surgical History History of bowel resection Family History Family History Mother No problems noted. Father No problems noted. Other Diabetes mellitus Hypertension Social History Social History Smoking status: Former smoker (smoked 1ppd for 10 years but quit 55 years ago) Second hand tobacco smoke exposure: No Smoking end date: 08/15/1965 Alcohol intake: never Substance use: never Substance use type: does not use Lack of Transportation: No Lack of Food: Never True Current Housing: I Have Housing Concerned About Future Housing: No Difficulty Paying Gas/Electric Bills: No Difficulty Paying for Meds: No Currently Unemployed: YES Education: High School Diploma/GED Difficulty w/ Childcare or Family Care: No Living arrangements: with family Occupation/Education: retired Gender identity (if verbalized by the patient): Male Spiritual care concerns: No Agree to blood products: Yes Comments At the time of my signature, I reviewed and agree with the nursing past medical, surgical, social, and family history. There is no relevant family history pertinent to the patient complaint. Exam Const: General: cooperative, healthy appearing, comfortable, no acute distress, alert and well nourished Nutritional Appearance: well nourished Orientation/consciousness: patient oriented x3 Limitations: no limitations HENMT: Head: normal to inspection Ears: external ears normal Face/Nose/Sinus: Normal external nose present, Normal nares present, normal facial exam, No erythema and No edema Face and sinus: normal facial exam, no erythema and no edema Mouth: Ye
== END 2023-12-02 15:24 | disposition home or self-care (01) ==
PROVIDERS: Emergency Provider Nurse Practitioner Family; PCP Family Medicine
DX: L25.9 Unspecified contact dermatitis, unspecified cause (principal); Z87.891 Personal history of nicotine dependence; M19.90 Unspecified osteoarthritis, unspecified site; N18.30 Chronic kidney disease, stage 3 unspecified; K21.9 Gastro-esophageal reflux disease without esophagitis; E78.5 Hyperlipidemia, unspecified
CPT/HCPCS: 99213; G0463

== ENCOUNTER → 2024-03-28 14:53 | Outpatient (CLI) | payer MEDICARE, SELFPAY ==
--- NOTE | ~2024-03-28 | XR_ITS ---
EXAMINATION: XR chest 2V 03/28/2024 15:04 INDICATION: Edema. Dyspnea. PROCEDURE: 2 view chest COMPARISON: Comparison to multiple prior studies sequentially, with oldest reviewed study dated 10/10. FINDINGS: The lungs are clear. The cardiomediastinal silhouette is within normal limits. There are no pleural effusions. There is no pneumothorax suspected. IMPRESSION: 1: NO ACUTE CARDIOPULMONARY DISEASE. Reviewed, dictated and finalized at location B.
== END ==
LOC: EXPBRAD 14:56
PROVIDERS: PCP Family Medicine; Visit Provider Family Medicine
DX: R60.9 Edema, unspecified (principal)
CPT/HCPCS: 71046

== ENCOUNTER 2024-04-17 19:08 | Emergency (ER) | payer MEDICARE, SELFPAY ==
--- NOTE | ~2024-04-17 | CT_ITS ---
EXAMINATION: CTA chest PE protocol DATE: 04/17/2024 20:58 INDICATION: Chest pain. TECHNIQUE: Computed tomography angiography (CTA) of the chest was performed with 100 mL Omnipaque-350 intravenous contrast timed to evaluate the pulmonary arteries. Coronal maximum intensity projection 3D-reconstructions were created by the technologist. Automated exposure control and iterative reconst ruction technique were employed. The dose-length product was 372.53 mGy-cm. COMPARISON: Chest CT 12/15/2020 FINDINGS: There is mild emphysema. There is mild atelectasis bilaterally. No pleural effusion. The he art size is normal. No pericardial effusion. There are coronary artery calcifications. There is no pu lmonary embolus. There is mild thoracic spondylosis. IMPRESSION: 1. No pulmonary embolus. 2. Mild emphysema. Reviewed, dictated and finalized at location A.
--- NOTE | ~2024-04-17 | XR_ITS ---
EXAMINATION: XR chest 1V portable DATE: 04/17/2024 19:24 INDICATION: Chest pain. TECHNIQUE: A single frontal view of the chest was obtained. COMPARISON: Chest 2 views 03/28/2024 FINDINGS: There is mild atelectasis in the lower lung zones. No pleural effusion or pneumothorax. The heart size is normal. IMPRESSION: 1. Mild atelectasis in the lower lung zones Reviewed, dictated and finalized at location A.
[2024-04-17 19:13] VITALS: BP 178/73; PULSE 87; RESP 14; TEMP 36.7; O2SAT 100
--- NOTE | 2024-04-17 19:13 | ECG_ITS ---
Test Date: 2024-04-17 19:14:27 Measurements Intervals Howard Rate: 85 P: 39 MT: 124 QRS: 61 QRSD: 92 T: 33 QT: 369 QTc: 441 Interpretive Statements SINUS RHYTHM BORDERLINE ST ABNORMALITY- ANTEROLATERAL LEADS BASELINE ARTIFACT- V1 BORDERLINE ECG No previous ECG available for comparison Electronically Signed On 04-17-2024 19:24:59 CDT by Amos Rodriguez D.O.
[2024-04-17 19:17] VITALS: PULSE 84
[2024-04-17 19:22] VITALS: O2SAT 100
[2024-04-17 19:25] LABS: Basophils Percent Auto 0.8 % (0.2-1.2); Eosinophils Absolute Auto 0.1 K/mm3 (0-0.3); Eosinophils Percent Auto 2.4 % (0-4.4); Hemoglobin 13.2 g/dL (14.0-18.0); Immature Granulocyte Absolute 0.01 K/mm3 (0.00-0.031); Immature Granulocyte Percent A 0.2 % (0-0.5); Lymphocytes Absolute Auto 1.87 K/mm3 (0.9-3.2); Lymphocytes Percent Auto 37.9 % (18.3-44.2); Mean Corpuscular HGB Conc 34.7 g/dl (32-36); Mean Corpuscular Hemoglobin 33.5 pg (26-34); Mean Corpuscular Volume 96.4 fl (80-100); Mean Platelet Volume 9.4 fl (7.4-10.4); Monocytes Absolute Auto 0.4 K/mm3 (0.1-0.6); Monocytes Percent Auto 7.5 % (2.6-8.5); Neutrophils Absolute Auto 2.5 K/mm3 (1.3-6.7); Neutrophils Percent Auto 51.2 % (45.5-73.1); Platelet Count Result 178 k/mm3 (150-375); Red Blood Count 3.94 M/mm3 (4.6-6.20); White Blood Count 4.9 K/mm3 (4.5-10.0)
--- NOTE | 2024-04-17 19:31 | ED.CHESTPAIN ---
HPI - Chest Pain General Chief Complaint: Chest Pain <Edmund Pinzon MD - Last Filed: 04/18/24 12:02> Stated Complaint: chest pain since this am, resolved <Edmund Pinzon MD - Last Filed: 04/18/24 12:02> Time Seen by Provider: 04/17/24 19:16 <Edmund Pinzon MD - Last Filed: 04/18/24 12:02> History of Present Illness HPI narrative: 83-year-old male present to the emergency department for evaluation for intermittent left-sided chest pain. Patient states that the pain has been happening intermittently over the last few days. Patient states that his that rest and with exertion. Patient states he is not able to induce the pain. Patient denies any prior cardiac history. Patient's last stress test was approximately 15 years ago. Patient denies any coughs colds or fevers. Patient denies any recent illness. Patient denies any falls or injuries. <Edmund Pinzon MD - Last Filed: 04/18/24 12:02> 83-year-old male present to the emergency department for evaluation for intermittent left-sided chest pain. Patient states that the pain has been happening intermittently over the last few days. Patient states that it happens at rest and with exertion. Patient states he is not able to induce the pain. Patient denies any prior cardiac history. Patient's last stress test was approximately 15 years ago. Patient denies any coughs colds or fevers. Patient denies any recent illness. Patient denies any falls or injuries. <Deanna Poon PA-C - Last Filed: 04/17/24 23:37> Related Data Allergies/Adverse Reactions: Allergies Allergy/AdvReac Type Severity Reaction Status Date / Time Penicillins Allergy Unknown Rash Verified 03/28/24 13:27 <Edumnd Pinzon MD - Last Filed: 04/18/24 12:02> Review of Systems Review of Systems: All systems reviewed & are unremarkable except as noted in HPI and below <Edmund Pinzon MD - Last Filed: 04/18/24 12:02> [facility] Past Medical History Medical History: Medical History Abdominal bloating Arthritis Bronchitis Chronic renal insufficiency, stage III (moderate) GERD (gastroesophageal reflux disease) Hyperlipidemia Sinus infection <Edmund Pinzon MD - Last Filed: 04/18/24 12:02> Surgical History Surgical History: Surgical History History of bowel resection <Edmund Pinzon MD - Last Filed: 04/18/24 12:02> Family History Family History: Family History Mother No problems noted. Father No problems noted. Other Diabetes mellitus Hypertension <Edmund Pinzon MD - Last Filed: 04/18/24 12:02> Social History Social History: Social History Smoking status: Former smoker (smoked 1ppd for 10 years but quit 55 years ago) Second hand tobacco smoke exposure: No Smoking end date: 08/15/1965 Alcohol intake: never Substance use: never Substance use type: does not use Lack of Transportation: No Lack of Food: Never True Current Housing: I Have Housing Concerned About Future Housing: No Difficulty Paying Gas/Electric Bills: No Difficulty Paying for Meds: No Currently Unemployed: YES Education: High School Diploma/GED Difficulty w/ Childcare or Family Care: No Living arrangements: with family Occupation/Education: retired Gender identity (if verbalized by the patient): Male Spiritual care concerns: No Agree to blood products: Yes <Edmund Pinzon MD - Last Filed: 04/18/24 12:02> Exam Narrative: APPEARANCE: Well appearing, no pain, no distress, well-nourished. HEAD: normocephalic, atraumatic. EYES: PERRLA/EOMI, conjunctivae clear. NOSE: Normal no drainage EARS:TMS clear with good light reflex. THROAT: Pharynx clear, no exudate. NECK: Supple. No a
[2024-04-17 19:35] LABS: Alanine Aminotransferase 15 U/L (6-50); Albumin Level 4.1 g/dL (3.5-5.1); Alkaline Phosphatase 82 U/L (38-126); Anion Gap 11 mmol/L (4-12); Aspartate Amino Transferase 23 U/L (17-59); Bilirubin,Total 0.6 mg/dL (0.2-1.3); Blood Urea Nitrogen 19 mg/dL (9-20); Calcium 8.7 mg/dL (8.4-10.2); Carbon Dioxide 26 mmol/L (22-30); Chloride 100 mmol/L (98-107); Estimated CRCL calculation 43 ml/min; Estimated Glomerular Filt Rate 58; Glucose 115 mg/dL (65-110); Lipase 119 U/L (23-300); Potassium 3.7 mmol/L (3.4-5.0); Sodium 137 mmol/L (137-145)
[2024-04-17 19:38] LABS: INR 1.1; Prothrombin Time 14.3 Seconds (11.1-14.7)
[2024-04-17 19:39] LABS: Partial Thromboplastin Time 26.4 Seconds (22.3-36.8)
[2024-04-17 19:46] LABS: Troponin I < 0.012 ng/mL (0.000-0.034)
[2024-04-17 19:53] LABS: D Dimer 1.59 ug/mL (<0.48)
[2024-04-17 20:15] LABS: Influenza A QL RT-PCR Negative (Negative); Influenza B QL RT-PCR Negative (Negative); RSV RNA, RT-PCR Negative (Negative); SARS-CoV-2 RNA PCR Negative (Negative)
[2024-04-17 20:29] VITALS: BP 162/78; PULSE 72; RESP 17; O2SAT 100
--- NOTE | 2024-04-17 21:36 | ECG_ITS ---
Test Date: 2024-04-17 22:09:01 Measurements Intervals [place] Rate: 73 P: 42 NC: 132 QRS: 66 QRSD: 95 T: 36 QT: 391 QTc: 431 Interpretive Statements SINUS RHYTHM BORDERLINE ST ABNORMALITY- ANTEROLATERAL LEADS BASELINE ARTIFACT- I, II, III, AVL, AVF, V1-V2 BORDERLINE ECG Compared to ECG 04/17/2024 19:14:27 No significant changes Electronically Signed On 04-18-2024 06:36:19 CDT by Amos Rodriguez D.O.
[2024-04-17 22:33] LABS: Troponin I < 0.012 ng/mL (0.000-0.034)
[2024-04-17 22:35] VITALS: BP 160/75; PULSE 72; RESP 16; TEMP 36.6; O2SAT 100
== END 2024-04-17 23:53 | disposition home or self-care (01) ==
PROVIDERS: Emergency Medicine; Emergency Provider Emergency Medicine; PCP Family Medicine
DX: R07.9 Chest pain, unspecified (principal); Z20.822 Contact with and (suspected) exposure to COVID-19; N18.30 Chronic kidney disease, stage 3 unspecified; E78.5 Hyperlipidemia, unspecified; M19.90 Unspecified osteoarthritis, unspecified site; K21.9 Gastro-esophageal reflux disease without esophagitis; Z90.49 Acquired absence of other specified parts of digestive tract; R94.31 Abnormal electrocardiogram [ECG] [EKG]; J43.9 Emphysema, unspecified
CPT/HCPCS: 36415; 71045; 71275; 80053; 83690; 84484; 85025; 85380; 85610; 85730; 87637; 93005; 99284; Q9967

== ENCOUNTER 2024-04-18 12:06 | Outpatient (CLI) | payer MEDICARE, SELFPAY ==
--- NOTE | 2024-04-18 12:12 | ECHO_ITS ---
Patient Info Name: Antonio Valle Age: 83 years : 1940 Gender: Male Ht: 69 in Wt: 170 lbs BSA: 1.95 m2 HR: 87 bpm BP: 165 / 91 mmHg Heart Rhythm: Sinus Rhythm Technical Quality: Fair Exam Date: 04/18/2024 12:22 PM Exam Location: Echo Lab Patient Status: Outpatient Admit Date: 04/18/2024 Staff Ordering Physician: Leda Deshpande MD [facility]: Rupal Ball RDCS Attending Provider: Leda Deshpande MD Referring Physician: Jeramy MCDOWELL; Exam Type: CA echo doppler color flow Study Info Indications R60.9 - Edema, unspecified Complete two-dimensional, color flow and Doppler transthoracic echocardiogram is performed. Summary 1. Complete two-dimensional, color flow and Doppler transthoracic echocardiogram is performed. 2. Left ventricular chamber dimension is normal. 3. Left ventricular systolic function is normal, estimated at 65-70%. 4. The left ventricular diastolic function is grade I diastolic dysfunction. 5. E/e' 8 is minimally elevated. 6. No pulmonary hypertension, estimated pulmonary arterial systolic pressure is 17 mmHg. 7. There is trace pulmonic regurgitation. Left Ventricle E/e' 8 is minimally elevated. Left ventricular chamber dimension is normal. Left ventricular systolic function is normal, estimated at 65-70%. The left ventricular diastolic function is grade I diastolic dysfunction. Right Ventricle Right ventricular systolic function is normal and with normal TAPSE 2.7 cm. Right ventricular chamber dimension is normal. Left Atria Left atrial chamber dimension is normal. Right Atria Right atrial chamber dimension is normal. Aortic Valve The aortic valve is trileaflet. There is no aortic valve stenosis. There is no aortic valve regurgitation. Pulmonic Valve There is trace pulmonic regurgitation. Mitral Valve There is no mitral valve stenosis. There is no mitral valve regurgitation. Tricuspid Valve There is no tricuspid valve regurgitation. No pulmonary hypertension, estimated pulmonary arterial systolic pressure is 17 mmHg. Pericardium/Pleural There is no pericardial effusion. Inferior Vena Cava Normal inferior vena cava with >50% collapse upon inspiration consistent with normal right atrial pressure, 5 mmHg. Aorta The aortic root size at the sinus of Valsalva is normal. Left Ventricular Outflow Tract Name Value Normal LVOT 2D LVOT Diameter 2.0 cm LVOT Doppler LVOT Peak Gradient 4 mmHg LVOT Mean Gradient 2 mmHg LVOT VTI 18 cm LVOT VTI/AV VTI Ratio 0.9 LVOT Stroke Volume 56 ml LVOT CO 4.4 l/min LVOT CI 2.3 l/min/m2 Pulmonic Valve Name Value Normal RVOT Doppler RVOT Peak Gradient 3 mmHg PV Doppler
== END 2024-04-18 12:07 | disposition home or self-care (01) ==
LOC: ANHCARD 12:07
PROVIDERS: PCP Family Medicine; Visit Provider Family Medicine
DX: R60.9 Edema, unspecified (principal)
CPT/HCPCS: 93306

== ENCOUNTER → 2024-06-08 13:56 | Outpatient (CLI) | payer MEDICARE, SELFPAY ==
--- NOTE | ~2024-06-08 | XR_ITS ---
3 VIEWS LUMBAR SPINE Ordering provider: Leda Deshpande History: . M54.50 - Low back pain, unspecified . Comparison: None. FINDINGS: VERTEBRAL BODIES: No visible fracture or subluxation. Degenerative changes of the spine. Mild dextroscoliosis. DISK SPACES: Narrowing of the disc L1-L2, L2-L3, and L5-S1. Facet joint disease at the level of L5-S1 . SOFT TISSUES: Aortic atherosclerotic changes. IMPRESSION: No acute osseous abnormality lumbar spine. Multilevel degenerative disc disease. Reviewed, dictated and finalized at location A.
== END ==
LOC: EXPBRAD 14:01
PROVIDERS: PCP Family Medicine; Visit Provider Family Medicine
DX: M51.369 Other intervertebral disc degeneration, lumbar region without mention of lumbar back pain or lower extremity pain (principal)
CPT/HCPCS: 72110

== ENCOUNTER 2024-12-20 09:23 | Emergency (ER) | payer MEDICARE, SELFPAY ==
[2024-12-20 09:30] VITALS: BP 158/68; PULSE 102; RESP 20; TEMP 36.4; O2SAT 100
--- OUTSIDE RECORDS SUMMARY | 2024-12-20 09:45 | XMS_ITS | Continuity of Care Document ---
Author Organization [facility] Address [id number] [place] [address] [place] [address] Phone Care Team Providers [employer] Insurance Claim Examiner Name Role Phone Rosi Shannon MD Unavailable Unavailable Advance Directives Directive Yes / No Effective Date File Name No Information Encounters Encounter Description Practice Location Reason(s) For Visit Diagnoses Date Provider Providers Copied on Encounter [facility], [address], [place], [place], [id number], [place] tel:[phone] [address] [place] Professional No Information 6 Shiva Aranda. [address] [facility], [facility], [place], [address], [place]. tel:[phone] Family History Family Member Type Diagnosis Age At Onset No Information Payers Payer name Insurance type Covered green party ID Authoriza tion(s) No Information Social History Type Description Quantity Date Captured Comments Sex Male Smoking Status No Information Chief Complaint And Reason For Visit No Information Reason For Referral Reason For Referral No Information History Of Present Illness Encounter Date Complaint History Of Prese nt Illness No Information Functional Status Date Functional Assessmen t No Information Instructions Date Instruction Additional Infor mation No Information Assessments Type Assessment Date No Information Patient Care Teams Name Effective Dates (start - stop) Status Members No Information
--- NOTE | 2024-12-20 09:46 | ED_ITS ---
HPI - URI/Sore Throat General Chief Complaint: Upper Respiratory Infection Stated Complaint: Cough/Nasal Congestion Time Seen by Provider: 12/20/24 09:46 Source: patient, RN notes reviewed and old records reviewed Mode of arrival: ambulatory Limitations: no limitations History of Present Illness HPI Narrative: 84 year old male who presents to [facility] care with complaints of sinus congestion and drainage which has been going on for awhile and then has developed a cough which is dry and some sore throat for the past 2 days. Patient reports that he did take some Sudafed a couple days ago for his sinus congestion . Patient reports that he has history of sinus problems in the past. Patient reports that he has not had any shortness of breath, denies any known body aches or any fevers or chills. MD elicited complaint: cough, sore throat, rhinorrhea, nasal congestion and other Onset (ago): week(s) (over a week of sinus congestion, cough and sore throat 2 days) Severity: moderate Treatments prior to arrival: other (Sudafed and Tylenol) Related Data Allergies Allergy/AdvReac Type Severity Reaction Status Date / Time Penicillins Allergy Unknown Rash Verified 12/20/24 09:33 Review of Systems Review of Systems: CONSTITUTIONAL: Denies fever, chills, or sweats. EYES: Denies visual changes, redness, or discharge. ENT:Reports rhinorrhea, congestion,scratchy sore throat, no otalgia. CARDIOVASCULAR: Denies chest pain, palpitations, or edema. RESPIRATORY: Reports cough denies dyspnea. GASTROINTESTINAL: Denies abdominal pain, nausea, vomiting, or diarrhea. GENITOURINARY: Denies dysuria or hematuria. SKIN: Denies rash or itching. MUSCULOSKELETAL: Denies back pain, joint pain, or myalgia. NEUROLOGIC: Denies headache, numbness, or weakness. PSYCHIATRIC: Denies anxiety or depression. All systems reviewed & are unremarkable except as noted in HPI and below PMFSH Past Medical History Medical History Chronic renal insufficiency, stage III (moderate) Abdominal bloating Hyperlipidemia Bronchitis GERD (gastroesophageal reflux disease) Arthritis Sinus infection Surgical History Surgical History History of bowel resection Family History Family History Mother No problems noted. Father No problems noted. Other Diabetes mellitus Hypertension Social History Social History Smoking status: Former smoker (smoked 1ppd for 10 years but quit 55 years ago) Second hand tobacco smoke exposure: No Smoking end date: 08/15/1965 Alcohol intake: never Substance use: never Substance use type: does not use Lack of Transportation: No Lack of Food: Never True Current Housing: I Have Housing Concerned About Future Housing: No Difficulty Paying Gas/Electric Bills: No Difficulty Paying for Meds: No Currently Unemployed: YES Education: High School Diploma/GED Difficulty w/ Childcare or Family Care: No Living arrangements: with family Occupation/Education: retired Gender identity (if verbalized by the patient): Male Spiritual care concerns: No Agree to blood products: Yes Comments At time of signature, agree with nursing past medical, surgical, social and family history. There is no relevant family history pertinent to the presenting complaint Exam Narrative: GENERAL: Well-appearing, well-nourished, and in no acute distress. HEAD: Normocephalic, atraumatic. EYES: PERRLA and EOMI. ENT: Nares clear, positive for rhinorrhea and congestion, no epistaxis. Mucous membranes moist. TM's normal post nasal drainage NECK: Supple. no lymphadenopathy CHEST: Clear to auscultation. No respiratory distress.SAO2 100% on room air, dry cough noted HEART: Regular rate and rhythm. No murmur heard. Normal peripheral pulses. ABDOMEN: Soft, nontender, nondistended, normal active bowel sounds. EXTREMITIES: Normal range of motion. No edema. SKIN: Warm, dry, no rash. NEURO: No focal deficits. Alert and oriented x3. Course Course Emergency Course: Patient is aware of diagnosis, understands and agrees to treatment plan.? Anticipatory guidance given.? Patient agrees to follow-up as directed and is aware of reasons to seek care at the emergency department. Portions of this record may have been created with voice recognition software Level of Care: Express Care Visit Vital Signs Vital signs: Vital Signs Temperature 36.4 C 12/20/24 09:30 Pulse Rate 102 H 12/20/24 09:30 Respiratory Rate 20 12/20/24 09:30 Blood Pressure 158/68 H 12/20/24 09:30 Pulse Oximetry 100 12/20/24 09:30 Oxygen Delivery Room Air 12/20/24 09:30 Temperature 36.4 C 12/20/24 09:30 Pulse Rate 102 H 12/20/24 09:30 Respiratory Rate 20 12/20/24 09:30 Blood Pressure 158/68 H 12/20/24 09:30 Pulse Oximetry 100 12/20/24 09:30 Oxygen Delivery Room Air 12/20/24 09:30 Reviewed MDM - URI/Sore Throat Differential Diagnosis Differential diagnosis: Likely upper respiratory infection, sinusitis, viral infection and other (cough) Medical Records Attestation: I reviewed the patient's medical records. Critical Care Time Critical Care Time Critical Care Time: No Discharge Plan Discharge Clinical Impression: Sinusitis Qualifiers: Sinusitis location: pansinusitis Chronicity: acute Recurrence: not specified as recurrent Qualified Code(s): J01.40 - Acute pansinusitis, unspecified Cough Qualifiers: Cough type: acute Qualified Code(s): R05.1 - Acute cough Patient Disposition: Home Condition: Stable Instructions: Antibiotic Form, Sinusitis (ED), Acute Cough (ED) Additional Instructions: Increase fluids especially juices and water Oelo-ooy-asnihlt cough and cold medicine of your choice for your symptoms Zyrtec Claritin or Patricia daily include Coricidin brand decongestant due to elevated blood pressure Cough tablets as directed for cough--do not bite, chew or suck on--swallow whole Tylenol or ibuprofen for any fever pain heat to the face 20-30 minutes 4-6 times a day for pain Salt water gargles, throat lozenges or throat sprays as desired Antibiotic as directed--finished the medication If your symptoms persist, change or worsen significantly before you can contact your personal physician then please, without delay, go to the emergency department for further evaluation. Follow-up with PCP in 7-10 days or sooner if needed Follow up with PCP soon in regards to your blood pressure which is elevated above threshold for referral. Blood pressure above 120/80 may indicate pre- hypertension. Patient Language: Bengali Prescriptions: New azithromycin 250 mg tablet See Rx Instructions .ROUTE .COMPLEX Qty: 6 0RF Rx Instructions: For 250 mg dose pack: take 500 mg today (day 1), then 250 mg for 4 days (days 2-5) benzonatate 200 mg capsule 200 mg PO TID PRN (Reason: cough) Qty: 14 0RF No Action famotidine 20 mg tablet 20 mg PO DAILY PRN (Reason: abdominal pain) Qty: 90 1RF Follow-up/Referrals: Leda Deshpande MD [Primary Care Provider] - Time of Disposition: 10:03 Quality Jojo Coma Scale Eyes: Open Verbal: Oriented and Alert Motor: Follows Commands Jojo Coma Total Score: 15
== END 2024-12-20 10:05 | disposition home or self-care (01) ==
PROVIDERS: Emergency Provider Registered Nurse; PCP Family Medicine
DX: J01.40 Acute pansinusitis, unspecified (principal); R05.1 Acute cough; N18.30 Chronic kidney disease, stage 3 unspecified; E78.5 Hyperlipidemia, unspecified; K21.9 Gastro-esophageal reflux disease without esophagitis; M19.90 Unspecified osteoarthritis, unspecified site; Z87.891 Personal history of nicotine dependence
CPT/HCPCS: 99213; G0463